=== PATIENT | female | born 1965 | race American Indian/Alaskan Native ===

== ENCOUNTER 2019-09-16 10:28 | Outpatient (CLI) | payer OTHER ==
--- NOTE | 2019-09-16 11:26 | XRay Report ---
Lumbar spine 3 views INDICATION: Low back pain. IMPRESSION: Multilevel discogenic and facet arthropathy particularly L4-L5 and L5-S1. Signer Name: Ortega Adames MD Signed: 09/16/2019 11:22 AM Workstation Name: [id number]
--- NOTE | 2019-09-16 11:39 | XRay Report ---
RIGHT KNEE HISTORY: Knee pain. COMPARISON: None. TECHNIQUE: 2 views of the right knee obtained. FINDINGS: Bones: No fracture or dislocation. Moderate diffuse osteopenia. Joint spaces: Mild osteoarthritis of the medial knee joint and the patellofemoral joint. Soft tissues: No joint effusion. Additional findings: None. IMPRESSION: 1. Mild osteoarthritis. Signer Name: Dylan Patel MD Signed: 09/16/2019 11:35 AM Workstation Name: [id number]
== END 2019-09-16 10:29 | disposition home or self-care (01) ==
LOC: XRAY 10:28
PROVIDERS: ATTEND Internal Medicine
DX: M47.817 Spondylosis without myelopathy or radiculopathy, lumbosacral region (principal); M17.11 Unilateral primary osteoarthritis, right knee; M85.88 Other specified disorders of bone density and structure, other site; G43.909 Migraine, unspecified, not intractable, without status migrainosus; M19.90 Unspecified osteoarthritis, unspecified site; R42 Dizziness and giddiness
CPT/HCPCS: 72100